=== PATIENT | male | born 1975 | race Caucasian/White ===

== ENCOUNTER 2018-06-08 10:53 | Outpatient (RCR) | payer MEDICARE, MEDICAID ==
[~2018-06-08 10:53] MED LIST: CEPHALEXIN500 M1 PO; FLOMAX 0.40.4 MG/CAP PO; HUMIRA40 MG/0.8 MR; LIPITOR20 MG PO; LORTAB 10/500 51 TAB PO; NORCO 325 MG-51 TAB PO; OMNICEF 300MG300 MG PO; PREDNISONE 5MG5 MG PO; ZOFRAN ODT4 MG PO
== END 2018-06-19 16:03 | disposition home or self-care (01) ==
LOC: MKS.ESL.PT 10:53
DX: M19.072 Primary osteoarthritis, left ankle and foot (principal); Z98.1 Arthrodesis status